=== PATIENT | male | born 1980 | race Caucasian/White ===

== ENCOUNTER 2021-10-25 23:27 | Emergency (ER) | payer SELFPAY ==
[~2021-10-25] VITALS: Ht 180.3 cm; Wt 100.0 kg
[~2021-10-25 23:27] MED LIST: LISI20TA18 PO; [UNRECOGNIZED DRUG - REMARK]
[2021-10-25] MEDS ORDERED: IV RINGERS SOLUTION,LACTATED 1,000 ML IV SCH (23:30)
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
[2021-10-26 00:03] VITALS: BP 144/60
[2021-10-26 00:16] LABS: BASO # 0.2 x10^3/uL (0.0-0.2); BASO % 1 % (0-3); EOS # 0.6 x10^3/uL (0.0-0.7); EOS % 4 % (0-3); HEMATOCRIT 46.9 % (39.0-53.0); HEMOGLOBIN 15.7 g/dL (13.0-17.5); LYMPH # 6.4 x10^3/uL (1.0-4.8); LYMPH % 39 % (24-48); MEAN CORPUSCULAR HEMOGLOBIN 31 pg (25-35); MEAN CORPUSCULAR HGB CONC 34 g/dL (31-37); MEAN CORPUSCULAR VOLUME 93 fL (79-100); MONO # 1.4 x10^3/uL (0.0-1.1); MONO % 8 % (0-9); NEUT # 7.8 x10^3uL (1.8-7.7); NEUT % 48 % (31-73); PLATELET COUNT 392 x10^3/uL (140-400); RED BLOOD COUNT 5.04 x10^6/uL (4.30-5.70); RED CELL DISTRIBUTION WIDTH 13.7 % (11.5-14.5); WHITE BLOOD COUNT 16.3 x10^3/uL (4.0-11.0)
[2021-10-26 00:40] LABS: % BANDS 2 % (0-9); % EOS 2 % (0-5); % LYMPHS 46 % (24-48); % MONOS 5 % (0-10); % SEGS 45 % (35-66)
[2021-10-26 00:44] LABS: CREATININE 1.6 mg/dL (0.7-1.3); DIRECT BILIRUBIN 0.1 mg/dL (0.0-0.2); GFR 47.9; POTASSIUM 4.2 mmol/L (3.5-5.1); TOTAL BILIRUBIN 0.3 mg/dL (0.2-1.0); TOTAL PROTEIN 7.7 g/dL (6.4-8.2)
[2021-10-26 00:47] LABS: BGAS PH 7.5 (7.35-7.46)
[2021-10-26 00:57] LABS: BARBITURATES NEG (NEG); BENZODIAZEPINES NEG (NEG); CANNABINOIDS NEG (NEG); COCAINE NEG (NEG); METHADONE NEG (NEG); OPIATES NEG (NEG); PHENCYCLIDINE NEG (NEG)
[2021-10-26 00:58] LABS: BACTERIA,URINE 0 /HPF (0-FEW); BILIRUBIN,URINE NEG (NEG); CLARITY,URINE CLEAR; COLOR,URINE YELLOW; GLUCOSE,URINE NEG (NEG); NITRITE,URINE NEG (NEG); RBC,URINE 0 /HPF (0-2); SQUAMOUS EPITHELIAL CELL,UR OCC /LPF; UROBILINOGEN,URINE 0.2 mg/dL (0.2 mg/dL); WBC,URINE OCC /HPF (0-4)
[2021-10-26 00:59] LABS: AMPHETAMINE/METHAMPHETAMINE NEG (NEG)
[2021-10-26 01:01] LABS: PLT ESTIMATE ADEQUATE (ADEQUATE)
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
== END 2021-10-26 00:18 | disposition short-term general hospital (02) ==
LOC: ER 23:27
DX: T21.24XA Burn of second degree of lower back, initial encounter (principal); T22.20XA Burn of second degree of shoulder and upper limb, except wrist and hand, unspecified site, initial encounter; T23.202A Burn of second degree of left hand, unspecified site, initial encounter; T23.201A Burn of second degree of right hand, unspecified site, initial encounter; T24.211A Burn of second degree of right thigh, initial encounter; T31.44 Burns involving 40-49% of body surface with 40-49% third degree burns; D72.829 Elevated white blood cell count, unspecified; I10 Essential (primary) hypertension; R79.89 Other specified abnormal findings of blood chemistry; Z87.891 Personal history of nicotine dependence; X08.8XXA Exposure to other specified smoke, fire and flames, initial encounter; Y93.89 Activity, other specified; Y92.89 Other specified places as the place of occurrence of the external cause; Y99.8 Other external cause status
CPT/HCPCS: 36415; 71045; 80048; 80076; 80307; 81001; 82550; 82803; 83690; 83735; 83880; 84443; 84484; 85007; 85025; 85379; 85610; 85730; 96361; 96374; 96376; 99285; J3010; J7120